=== PATIENT | male | born 1940 | race Caucasian/White ===

== ENCOUNTER → 2019-03-28 | Outpatient (CLI) | payer MEDICARE ==
[~2019-03-28] MED LIST: BARIUM SULFATE 40% (APPLE) 148 GM PWD. PO ONE
--- NOTE | 2019-03-28 13:43 | RAD ---
Video dysphagia study, 03/28/2019: HISTORY: Stroke, dysphagia Swallowing mechanism was examined fluoroscopically in the lateral projection while the patient ingested a variety of food materials mixed with barium. 3.3 minutes of fluoroscopy time was utilized. One video fluoroscopic loop was recorded by member of the speech Department. The patient demonstrated good oral control of the barium materials. There tended to be a delay in initiation of pharyngeal peristalsis. With a large bolus of the thin liquid this resulted in laryngeal penetration and mild rosalina aspiration. This did elicit a cough reflex. Mild aspiration was also observed when ingesting the thin liquid from a straw. When the nectar consistency, honey thickened, and pudding consistency material were utilized there was no further aspiration. The majority of these boluses passed normally through the cervical esophagus. The patient ingested the barium coated solids without difficulty. IMPRESSION: Abnormal swallowing mechanism with delayed initiation of pharyngeal peristalsis resulting in mild aspiration of the thin liquids with a large bolus or when utilizing a straw. Electronically signed by: Jovani Rahman MD (03/28/2019 1:40 PM) [facility]
== END | disposition home or self-care (01) ==
LOC: RAD 12:39
PROVIDERS: ATTEND Family Medicine
DX: I69.391 Dysphagia following cerebral infarction (principal); R13.10 Dysphagia, unspecified
CPT/HCPCS: 74230; 92611